=== PATIENT | male | born 1930 | race Caucasian/White ===

== ENCOUNTER 2016-12-19 08:45 | Day surgery (SDC) | payer MEDICARE, BC ==
[2016-12-19] MEDS ORDERED: LIDOCAINE HCL/PF 1% 30 ML SDV ONE (09:02)
[2016-12-19 09:42] LABS: BASOPHILS % (AUTO) 0.8 % (0.0-2.0); EOSINOPHILS # (AUTO) 0.3 /CMM (0.0-0.7); EOSINOPHILS % (AUTO) 6.6 % (0.0-6.0); HEMATOCRIT 41 % (39-51); HEMOGLOBIN 13.6 g/dL (13.5-17.5); LYMPHOCYTES # (AUTO) 1.2 /CMM (0.8-4.8); LYMPHOCYTES % (AUTO) 24.1 % (20.0-44.0); MEAN CORPUSCULAR HEMOGLOBIN 30 PG (26.0-33.0); MEAN CORPUSCULAR HGB CONC 33 g/dl (31.0-36.0); MEAN CORPUSCULAR VOLUME 90 fL (80-96); MONOCYTES # (AUTO) 0.7 /CMM (0.1-1.30); MONOCYTES % (AUTO) 14.5 % (2.0-12.0); NEUTROPHILS # (AUTO) 2.6 /CMM (1.8-8.9); PLATELET COUNT (AUTO) 251 /CMM (150-450); RDW COEFFICIENT OF VARIATION 14.1 (11.5-15.0); RED BLOOD CELL COUNT(AUTO) 4.54 MIL/uL (4.5-6.0); WHITE BLOOD COUNT (AUTO) 4.8 K/uL (4.3-11.0)
[2016-12-19] MEDS ORDERED: FENTANYL PF 100MCG/2ML AMPUL ONE (09:46)
[2016-12-19] MEDS ORDERED: MIDAZOLAM HCL 2 MG/2ML VIAL ONE (09:46)
[2016-12-19 09:58] LABS: CALCIUM, SERUM 9.4 mg/dL (8.5-10.1); POTASSIUM 4.2 mmol/L (3.5-5.1)
[2016-12-19 10:26] LABS: INR 1.02 (0.87-1.13); PROTHROMBIN TIME 10.9 SECS (9.5-12.7)
[2016-12-19] MEDS ORDERED: IV NS 0.9% 1,000 ML ONE (11:37)
[2016-12-19] MEDS ORDERED: NEEDLELESS EST SET LARGE BORE 1 EA INFUS.SET MC ONE (11:38)
[2016-12-19] MEDS ORDERED: IV SET PRIMARY 1 EA INFUS.SET MC ONE (11:38)
== END 2016-12-19 11:00 ==
LOC: DS 08:45
PROVIDERS: ATTEND Internal Medicine Interventional Cardiology
DX: I49.5 Sick sinus syndrome (principal); Z45.010 Encounter for checking and testing of cardiac pacemaker pulse generator [battery]; I10 Essential (primary) hypertension; E78.4 Other hyperlipidemia
CPT/HCPCS: 33213; 36415; 71010; 80048; 85025; 85730; 93005; C1785; J2250; J2704; J3010; J3490; J7030; Z7610